=== PATIENT | female | born 1945 | race Hispanic/Latino ===

== ENCOUNTER → 2021-04-22 | Outpatient (CLI) | payer OTHER, MEDICARE ==
[~2021-04-22] MED LIST: CALC-484 PO; DIATR MEGLU/DIATRIZOATE SODIUM 30 ML BOTTLE ONE; LISI-809 PO; SIMV40TA59 PO; VITA1CAP85 PO; WARF3TAB59 PO
== END | disposition home or self-care (01) ==
LOC: RAH 11:55
PROVIDERS: ATTEND Internal Medicine Gastroenterology
DX: Z93.1 Gastrostomy status (principal)
CPT/HCPCS: 74018; Q9963

== ENCOUNTER 2021-05-11 21:15 | Observation (INO) | payer OTHER, MEDICARE ==
[~2021-05-11] VITALS: Ht 154.9 cm; Wt 44.5 kg
[~2021-05-11 21:15] MED LIST changes: -DIATR MEGLU/DIATRIZOATE SODIUM 30 ML BOTTLE ONE
[2021-05-11 21:22] VITALS: BP 143/78
[2021-05-11] MEDS ORDERED: MORPHINE 2 MG SYG IVP ONE (22:30)
[2021-05-11] MEDS ORDERED: 0.9%NACL 1000ML 1,000 ML IV ONE (22:30)
[2021-05-11] MEDS ORDERED: FAMOTIDINE 20MG TAB PO ONE (22:30)
[2021-05-11] MEDS ORDERED: ONDANSETRON 4MG INJ IVP ONE (23:30)
[2021-05-11 23:46] LABS: BASOPHILS % (AUTO) 0.5 % (0.0-5.0); EOSINOPHILS % (AUTO) 0.8 % (0.0-8.0); HEMATOCRIT 35.1 % (36-48); MEAN CORPUSCULAR HGB CONC 32.8 g/dL (32.0-36.0); MEAN CORPUSCULAR VOLUME 88.4 fL (79-99); MONOCYTES % (AUTO) 5.4 % (3.0-13.0); PLATELET COUNT (AUTO) 207 K/uL (130-400); RED BLOOD CELL COUNT(AUTO) 3.97 MIL/uL (4.00-5.50); RED CELL DISTRIBUTION WIDTH 14.7 % (11.0-15.5); WHITE BLOOD COUNT (AUTO) 10.4 K/uL (4.8-10.8)
[2021-05-11 23:56] LABS: CREATININE 0.7 mg/dL (0.5-1.5)
[2021-05-11] MEDS ORDERED: MORPHINE 2 MG SYG ONE (23:58)
[2021-05-11] MEDS ORDERED: FAMOTIDINE 20MG TAB ONE (23:58)
[2021-05-12] VITALS (11 sets, daily range): BP systolic 119–150; BP diastolic 45–75
[2021-05-12 00:04] LABS: ALBUMIN 3.6 g/dL (3.5-5.0); BILIRUBIN,TOTAL 0.4 mg/dL (0.2-1.0); MAGNESIUM 2.1 mg/dL (1.80-2.40); TOTAL PROTEIN, SERUM 7.2 g/dL (6.0-8.3)
[2021-05-12 01:22] LABS: APPEARANCE,URINE Cloudy (CLEAR); BILIRUBIN,URINE Negative (NEGATIVE); COLOR,URINE Yellow (YELLOW); GLUCOSE, URINE (UA) Negative (NEGATIVE); KETONES,URINE Negative (NEGATIVE); LEUKOCYTE ESTERASE ,URINE Large (NEGATIVE); NITRATE,URINE Negative (NEGATIVE); OCCULT BLOOD,URINE Negative (NEGATIVE); PH,URINE 7.5 (5.0-8.0); PROTEIN,URINE Negative (NEGATIVE)
[2021-05-12 01:35] LABS: AMORPHOUS SEDIMENT,UR Few /LPF (None Seen); BACTERIA,URINE Many /HPF (None Seen); RBC,URINE 0-1 /HPF (0-1); SQUAMOUS EPITHELIAL CELL,UR 0-2 /HPF (0-2)
[2021-05-12] MEDS ORDERED: MORPHINE 2 MG SYG IVP PRN (04:00)
[2021-05-12] MEDS ORDERED: ACETAMINOPHEN 325 MG TAB PO PRN ×2 (04:00→10:00)
[2021-05-12 04:17] LABS: INR 1.13 (0.85-1.15); PROTHROMBIN TIME 12.2 SEC (9.6-11.6)
[2021-05-12 04:18] LABS: PARTIAL THROMBOPLASTIN TIME 25.9 SEC (26.3-35.5)
[2021-05-12] MEDS: LEVOFLOXACIN 500 MG/D5W 100 ML 100 ML IV SCH (05:03)
[2021-05-12] MEDS: 0.9%NACL 1000ML 1,000 ML IV SCH ×2 (09:00→15:38)
[2021-05-12] MEDS: METRONIDAZOLE 500MG/100ML BAG 100 ML IVPB SCH ×2 (09:22→21:54)
[2021-05-12] MEDS ORDERED: POTASSIUM CHLORIDE 10% ELIXIR 20 MEQ/15 ML UDCUP PO PRN (10:00)
[2021-05-12] MEDS ORDERED: MAG/ALUM/SIMETH 30 ML UDCUP PO PRN (10:00)
[2021-05-12] MEDS ORDERED: POTASSIUM CHLORIDE 20MEQ/100ML 100 ML IV PRN ×2 (10:00)
[2021-05-12] MEDS ORDERED: DIPHENHYDRAMINE HCL 25 MG CAPSULE PO PRN (10:00)
[2021-05-12] MEDS ORDERED: DEXTROSE 50%-WATER 50 ML DISP.SYRIN IV PRN (10:00)
[2021-05-12] MEDS ORDERED: LIDOCAINE HCL-MPF 1% 2ML VIAL IV PRN ×2 (10:00)
[2021-05-12] MEDS ORDERED: KCL 20 MEQ ERTAB PO PRN (10:00)
[2021-05-12] MEDS ORDERED: DiphenhydrAMINE HCL 50 MG/ML VIAL IV PRN (10:00)
[2021-05-12] MEDS ORDERED: GLUCAGON 1MG KIT 1 MG ML IM PRN (10:00)
[2021-05-13] VITALS (8 sets, daily range): BP systolic 133–164; BP diastolic 68–85
[2021-05-13] MEDS ORDERED: APIX5TAB PO (01:39)
[2021-05-13] MEDS ORDERED: ATOR40TA71 PO (01:58)
[2021-05-13] MEDS ORDERED: ASPI-1197 PEG (01:59)
[2021-05-13] MEDS ORDERED: ESOM40CA54 PEG (02:01)
[2021-05-13] MEDS ORDERED: FURO20TA4 PEG (02:03)
[2021-05-13] MEDS ORDERED: CARV6.25 PEG (02:03)
[2021-05-13] MEDS ORDERED: FERR324T PO (02:04)
[2021-05-13] MEDS: ONDANSETRON 4MG INJ IVP PRN ×2 (02:37→11:41)
[2021-05-13] MEDS: LEVOFLOXACIN 500 MG/D5W 100 ML 100 ML IV SCH (03:49)
[2021-05-13] MEDS: 0.9%NACL 1000ML 1,000 ML IV SCH ×3 (03:49→20:54)
[2021-05-13 06:30] LABS: HEMATOCRIT 31.1 % (36-48); MEAN CORPUSCULAR HEMOGLOBIN 28.8 pg (27.0-33.0); MEAN CORPUSCULAR HGB CONC 32.5 g/dL (32.0-36.0); MEAN CORPUSCULAR VOLUME 88.6 fL (79-99); RED BLOOD CELL COUNT(AUTO) 3.51 MIL/uL (4.00-5.50); WHITE BLOOD COUNT (AUTO) 9.3 K/uL (4.8-10.8)
[2021-05-13 06:48] LABS: CREATININE 0.6 mg/dL (0.5-1.5); POTASSIUM 3.6 mmol/L (3.5-5.1)
[2021-05-13] MEDS: FAMOTIDINE 20MG VIAL IV SCH ×2 (08:24→11:42)
[2021-05-13] MEDS: METRONIDAZOLE 500MG/100ML BAG 100 ML IVPB SCH ×2 (08:24→11:42)
[2021-05-13] MEDS ORDERED: LACT-125 PEG (08:29)
[2021-05-13] MEDS: ENOXAPARIN SODIUM 30 MG/0.3 ML SQ SCH (09:00)
[2021-05-13] MEDS ORDERED: METRONIDAZOLE 500MG/100ML BAG 100 ML IVPB SCH (21:00)
[2021-05-14 03:59] VITALS: BP 147/74
[2021-05-14] MEDS ORDERED: LEVOFLOXACIN 500 MG/D5W 100 ML 100 ML IV SCH (04:00)
[2021-05-14] MEDS: METRONIDAZOLE 500MG/100ML BAG 100 ML IVPB SCH (08:26)
[2021-05-14] MEDS: ENOXAPARIN SODIUM 30 MG/0.3 ML SQ SCH (08:26)
[2021-05-14 08:31] VITALS: BP 132/79
[2021-05-14] MEDS ORDERED: DIGO125T71 PO (08:47)
[2021-05-14] MEDS ORDERED: CEPH500T PO (08:47)
[2021-05-14] MEDS ORDERED: CEFTRIAXONE 1G VIAL IVP SCH (09:00)
[2021-05-14] MEDS ORDERED: FAMOTIDINE 20MG VIAL IV SCH (09:00)
[2021-05-14] MEDS ORDERED: RANITIDINE HCL 15 MG/1 ML PO SCH (09:00)
[2021-05-14 11:44] VITALS: BP 125/66
[2021-05-14] MEDS ORDERED: ESOM40CA54 PEG (13:34)
[2021-05-14] MEDS ORDERED: DIGOXIN 125 MCG TABLET PO SCH (16:00)
[2021-05-15] MEDS ORDERED: FAMOTIDINE 20MG TAB PO SCH (09:00)
== END 2021-05-14 16:00 | disposition home health service (06) ==
LOC: EDH 21:15 → EDHIP 05-12 03:00 → 3AH 05-13 08:39
PROVIDERS: ADMIT Internal Medicine; ATTEND Internal Medicine
DX: K52.9 Noninfective gastroenteritis and colitis, unspecified (principal); I05.0 Rheumatic mitral stenosis; N30.00 Acute cystitis without hematuria; B96.20 Unspecified Escherichia coli [E. coli] as the cause of diseases classified elsewhere; I13.0 Hypertensive heart and chronic kidney disease with heart failure and stage 1 through stage 4 chronic kidney disease, or unspecified chronic kidney disease; I50.9 Heart failure, unspecified; N18.2 Chronic kidney disease, stage 2 (mild); A08.2 Adenoviral enteritis; E78.2 Mixed hyperlipidemia; E26.9 Hyperaldosteronism, unspecified; M51.36 Other intervertebral disc degeneration, lumbar region; F03.90 Unspecified dementia, unspecified severity, without behavioral disturbance, psychotic disturbance, mood disturbance, and anxiety; R32 Unspecified urinary incontinence; I95.9 Hypotension, unspecified; R55 Syncope and collapse; R47.1 Dysarthria and anarthria; I63.89 Other cerebral infarction; D50.9 Iron deficiency anemia, unspecified; E26.1 Secondary hyperaldosteronism; E78.00 Pure hypercholesterolemia, unspecified; E86.0 Dehydration; G81.90 Hemiplegia, unspecified affecting unspecified side; I48.91 Unspecified atrial fibrillation; I63.512 Cerebral infarction due to unspecified occlusion or stenosis of left middle cerebral artery; I69.30 Unspecified sequelae of cerebral infarction; K31.89 Other diseases of stomach and duodenum; K57.30 Diverticulosis of large intestine without perforation or abscess without bleeding; M19.90 Unspecified osteoarthritis, unspecified site; M51.9 Unspecified thoracic, thoracolumbar and lumbosacral intervertebral disc disorder; M75.91 Shoulder lesion, unspecified, right shoulder; R29.715 NIHSS score 15; R47.01 Aphasia; R53.2 Functional quadriplegia; D68.69 Other thrombophilia; K31.0 Acute dilatation of stomach; K21.9 Gastro-esophageal reflux disease without esophagitis; Z66 Do not resuscitate; Z79.01 Long term (current) use of anticoagulants; Z79.82 Long term (current) use of aspirin; Z91.19 Patient's noncompliance with other medical treatment and regimen; Z86.74 Personal history of sudden cardiac arrest; Z90.711 Acquired absence of uterus with remaining cervical stump; Z91.14 Patient's other noncompliance with medication regimen; Z93.1 Gastrostomy status; Z95.0 Presence of cardiac pacemaker; Z95.2 Presence of prosthetic heart valve; Z79.899 Other long term (current) drug therapy; Z98.890 Other specified postprocedural states
CPT/HCPCS: 36415 ×3; 74018; 74176; 80048; 80053; 81001; 82550; 83690; 83735; 84484; 85025; 85027; 85610; 85730; 87040 ×2; 87077; 87088; 87186; 93005 ×2; 96361 ×4; 96365; 96366 ×3; 96367; 96372; 96375 ×3; 96376 ×2; 99285; A4510; G0378 ×54; J0696; J1650 ×2; J1956 ×3; J2405 ×2; J3490 ×7; J7030 ×4

== ENCOUNTER 2021-05-14 23:12 | Emergency (ER) | payer OTHER, MEDICARE ==
[~2021-05-14] VITALS: Ht 154.9 cm; Wt 56.7 kg
[~2021-05-14 23:12] MED LIST changes: +APIX5TAB PO; +ASPI-1197 PEG; +ATOR40TA71 PO; -CALC-484 PO; +CARV6.25 PEG; +CEPH500T PO; +DIGO125T71 PO; +ESOM40CA54 PEG; +FERR324T PO; +FURO20TA4 PEG; +LACT-125 PEG; -LISI-809 PO; -SIMV40TA59 PO; -VITA1CAP85 PO; -WARF3TAB59 PO
[2021-05-14 23:52] VITALS: BP 148/79
[2021-05-15 00:08] LABS: BASOPHILS % (AUTO) 0.5 % (0.0-5.0); EOSINOPHILS % (AUTO) 1.3 % (0.0-8.0); HEMATOCRIT 33.8 % (36-48); LYMPHOCYTES % (AUTO) 19.8 % (21.0-51.0); MEAN CORPUSCULAR HGB CONC 33.1 g/dL (32.0-36.0); MEAN CORPUSCULAR VOLUME 87.6 fL (79-99); MONOCYTES % (AUTO) 9.8 % (3.0-13.0); NEUTROPHILS % (AUTO) 68.5 % (40.0-77.0); PLATELET COUNT (AUTO) 199 K/uL (130-400); RED BLOOD CELL COUNT(AUTO) 3.86 MIL/uL (4.00-5.50); RED CELL DISTRIBUTION WIDTH 14.4 % (11.0-15.5)
[2021-05-15 00:25] LABS: ALBUMIN 3.4 g/dL (3.5-5.0); BILIRUBIN,TOTAL 0.7 mg/dL (0.2-1.0); CREATININE 0.6 mg/dL (0.5-1.5); TOTAL PROTEIN, SERUM 7.1 g/dL (6.0-8.3)
[2021-05-15 00:39] LABS: POTASSIUM 2.7 mmol/L (3.5-5.1)
[2021-05-15] MEDS ORDERED: POTASSIUM CHLORIDE 10% ELIXIR 20 MEQ/15 ML UDCUP ONE (00:45)
[2021-05-15] MEDS ORDERED: POTASSIUM CHLORIDE 10% ELIXIR 20 MEQ/15 ML UDCUP PO ONE (01:00)
[2021-05-15 01:30] VITALS: BP 136/78
[2021-05-15 03:37] VITALS: BP 142/75
== END 2021-05-15 03:39 | disposition home or self-care (01) ==
LOC: EDH 23:12
DX: E87.6 Hypokalemia (principal); R19.7 Diarrhea, unspecified; K94.23 Gastrostomy malfunction; R47.01 Aphasia; I10 Essential (primary) hypertension; E78.00 Pure hypercholesterolemia, unspecified; K21.9 Gastro-esophageal reflux disease without esophagitis; Z79.01 Long term (current) use of anticoagulants; Z79.899 Other long term (current) drug therapy; Z79.82 Long term (current) use of aspirin; Z86.73 Personal history of transient ischemic attack (TIA), and cerebral infarction without residual deficits
CPT/HCPCS: 36415; 80053; 82550; 83690; 84132; 84484; 85025; 93005

== ENCOUNTER 2021-06-11 08:35 | Day surgery (SDC) | payer OTHER, MEDICARE ==
[~2021-06-11] VITALS: Ht 149.9 cm; Wt 47.6 kg
[~2021-06-11 08:35] MED LIST changes: -CARV6.25 PEG
[2021-06-11 10:05] VITALS: BP 146/75
[2021-06-11] MEDS ORDERED: UBID100C10 PO (10:29)
[2021-06-11] MEDS ORDERED: ACET650S28 PO (10:30)
[2021-06-11] MEDS ORDERED: MULT-1258 PO (10:31)
[2021-06-11] MEDS ORDERED: 0.9%NACL 1000ML 1,000 ML IV ONE (10:56)
[2021-06-11] MEDS ORDERED: PROPOFOL 10 MG/ML 20ML VIAL IV ONE (11:02)
[2021-06-11 11:20] VITALS: BP 94/41
[2021-06-11 11:25] VITALS: BP 106/60
[2021-06-11 11:30] VITALS: BP 116/76
[2021-06-11 11:49] VITALS: BP 125/77
== END 2021-06-11 11:59 | disposition home or self-care (01) ==
LOC: DAH 08:35 → ENDO 08:35
PROVIDERS: ATTEND Internal Medicine Gastroenterology
DX: K94.23 Gastrostomy malfunction (principal); Z20.822 Contact with and (suspected) exposure to COVID-19; I10 Essential (primary) hypertension; R63.3 Feeding difficulties; K31.89 Other diseases of stomach and duodenum; D64.9 Anemia, unspecified; E78.5 Hyperlipidemia, unspecified; R19.7 Diarrhea, unspecified; I49.3 Ventricular premature depolarization; Z86.73 Personal history of transient ischemic attack (TIA), and cerebral infarction without residual deficits; Z98.890 Other specified postprocedural states; Z95.5 Presence of coronary angioplasty implant and graft; Z79.84 Long term (current) use of oral hypoglycemic drugs; Z79.82 Long term (current) use of aspirin; Z79.899 Other long term (current) drug therapy; Y83.8 Other surgical procedures as the cause of abnormal reaction of the patient, or of later complication, without mention of misadventure at the time of the procedure
CPT/HCPCS: 43246; 87426; 93005; A4606; J2704; J7030